=== PATIENT | male | born 2000 | race African-American/Black ===

== ENCOUNTER 2021-04-15 14:07 | Emergency (ER) | payer SELFPAY ==
[2021-04-15 14:21] VITALS: BP 124/65; PULSE 82; RESP 16; TEMP 36.8; O2SAT 99
--- NOTE | 2021-04-15 14:40 | ED_ITS ---
HPI - Skin/Abscess/Foreign Bdy General Chief complaint: Skin/Abscess/Foreign Body Stated complaint: Allergic Reaction Source: patient and RN notes reviewed Limitations: no limitations History of Present Illness HPI narrative: The patient, previously mostly healthy clerical warehouse worker, presents with skin dermatitis. Patient comments he would like to have workmen's comp. paperwork filled for right >>left hand dermatitis that began about 2 weeks ago, after placing some kind of cleanser on hands, joce extensor aspect right hand. Denies systemic illness fever, URI , any prior/ pre-existing illness, blistering, fever, warmth, streaking, discharge. He comments skin findings completely resolved but he has some sensory changes of burning on the affected side Related Data Home Medications Medication Instructions Recorded Confirmed No Home Medications 04/15/21 04/15/21 Allergies Allergy/AdvReac Type Severity Reaction Status Date / Time No Known Allergies Allergy Verified 04/15/21 14:20 Review of Systems Review of Systems: General/Constitutional: No weight loss,fever Eyes: N0: Redness,discharge Gastrointestinal: No Vomiting, Bleeding-rectal Skin: No Lumps, REPORTS eruption Neurologic: No Focal Weakness,Sz Hematologic: Denies: Petechiae/Purpura PMFSH Comments At time of signature, agree with nursing past medical, surgical and history. There is no relevant family history pertinent to the presenting complaint Exam Narrative: General Appearance: Well nourished,Normocephalic, Conjunctiva clear Mouth/Throat: Normal appearing, Supple Respiratory: Airway patent, No respiratory distress Musculoskeletal: Moves all extremities, Non tender Skin: Warm, Dry -small, isolated macular skin eruption of extensor right hand Neurological: A&O x3, Normal affect Course Vital Signs Vital signs: Vital Signs Temperature 98.3 F 04/15/21 14:21 Pulse Rate 82 04/15/21 14:21 Respiratory Rate 16 04/15/21 14:21 Blood Pressure 124/65 04/15/21 14:21 Pulse Oximetry 99 04/15/21 14:21 Temperature 98.3 F 04/15/21 14:21 Pulse Rate 82 04/15/21 14:21 Respiratory Rate 16 04/15/21 14:21 Blood Pressure 124/65 04/15/21 14:21 Pulse Oximetry 99 04/15/21 14:21 Discharge Plan Discharge Clinical Impression: Hand dermatitis Patient Disposition: Home, Self-Care Condition: Stable Instructions: Eczema (ED) Additional Instructions: Keep photo log of area May try OTC preparations like hydrocortisone cream, Benadryl cream, Vaseline etc. Prescriptions: No Action No Home Medications RF: 0 Follow-up/Referrals: Perez,MD Lit [Primary Care Provider] -
== END 2021-04-15 14:45 | disposition home or self-care (01) ==
PROVIDERS: Emergency Provider Emergency Medicine; PCP Pediatrics
DX: L30.9 Dermatitis, unspecified (principal)
CPT/HCPCS: 99212; G0463